=== PATIENT | female | born 2000 | race Two or more races ===

== ENCOUNTER 2025-03-05 15:00 | Outpatient (CLI) | payer OTHER | END 2025-03-05 15:02 | disposition home or self-care (01) | LOC: PRENATAL 15:00 | PROVIDERS: ATTEND Obstetrics & Gynecology Maternal & Fetal Medicine | DX: O44.02 Complete placenta previa NOS or without hemorrhage, second trimester (principal); O34.212 Maternal care for vertical scar from previous cesarean delivery; O99.892 Other specified diseases and conditions complicating childbirth; Z3A.25 25 weeks gestation of pregnancy ==

== ENCOUNTER 2025-04-16 14:31 | Outpatient (CLI) | payer OTHER | END 2025-04-16 14:32 | disposition home or self-care (01) | LOC: PRENATAL 14:31 | PROVIDERS: ATTEND Obstetrics & Gynecology Maternal & Fetal Medicine | DX: O26.843 Uterine size-date discrepancy, third trimester (principal); O36.8130 Decreased fetal movements, third trimester, not applicable or unspecified; O34.219 Maternal care for unspecified type scar from previous cesarean delivery; Z3A.31 31 weeks gestation of pregnancy ==